=== PATIENT | female | born 1990 | race Caucasian/White ===

== ENCOUNTER 2019-03-27 15:22 | Outpatient (RCR) | payer BC, SELFPAY ==
[2019-03-28] MEDS: RHO(D) IMMUNE GLOBULIN 300 MCG SYRINGE IM (15:28)
== END 2019-06-25 23:59 | disposition home or self-care (01) ==
LOC: ANHLAB 15:22
PROVIDERS: Visit Provider Obstetrics & Gynecology
DX: O20.0 Threatened abortion (principal); Z29.13 Encounter for prophylactic Rho(D) immune globulin; O36.0990 Maternal care for other rhesus isoimmunization, unspecified trimester, not applicable or unspecified; Z3A.00 Weeks of gestation of pregnancy not specified
CPT/HCPCS: 36415; 36430; 90384; 96372; J2790

== ENCOUNTER 2019-08-16 10:30 | Outpatient (RCR) | payer BC, SELFPAY ==
[2019-08-17] MEDS: RHO(D) IMMUNE GLOBULIN 300 MCG SYRINGE IM (10:59)
== END 2019-11-14 23:59 | disposition home or self-care (01) ==
LOC: ANHLAB 10:30
PROVIDERS: Visit Provider Obstetrics & Gynecology
DX: Z29.13 Encounter for prophylactic Rho(D) immune globulin (principal); O36.0990 Maternal care for other rhesus isoimmunization, unspecified trimester, not applicable or unspecified; Z3A.00 Weeks of gestation of pregnancy not specified
CPT/HCPCS: 36415; 86900; 86901; 90384; 96372; J2790

== ENCOUNTER 2019-10-10 11:02 | Outpatient (RCR) | payer BC, SELFPAY ==
[2019-08-30 15:36] VITALS: BP 118/77; PULSE 95
[2019-09-06 10:11] VITALS: BP 123/70; PULSE 88
[2019-09-11 14:52] VITALS: BP 124/82; PULSE 111
[2019-09-19 13:51] VITALS: BP 121/70; PULSE 89
[2019-09-26 16:44] VITALS: BP 112/73; PULSE 92
[2019-10-03 15:01] VITALS: BP 121/68; PULSE 91
[2019-10-10 12:07] VITALS: BP 131/81; PULSE 89
== END 2019-10-17 08:15 | disposition home or self-care (01) ==
LOC: ANHOBOP 11:02
PROVIDERS: Visit Provider Obstetrics & Gynecology
DX: O09.293 Supervision of pregnancy with other poor reproductive or obstetric history, third trimester (principal); Z3A.32 32 weeks gestation of pregnancy; Z3A.33 33 weeks gestation of pregnancy; Z3A.34 34 weeks gestation of pregnancy; Z3A.37 37 weeks gestation of pregnancy; Z3A.38 38 weeks gestation of pregnancy; O26.893 Other specified pregnancy related conditions, third trimester; R03.0 Elevated blood-pressure reading, without diagnosis of hypertension; Z3A.35 35 weeks gestation of pregnancy; Z3A.36 36 weeks gestation of pregnancy
CPT/HCPCS: 59025

== ENCOUNTER 2019-10-16 10:00 | Inpatient (IN) | payer BC, SELFPAY ==
[2019-10-16] VITALS (54 sets, daily range): BP systolic 110–148; BP diastolic 63–90; PULSE 87–180; RESP 18; TEMP 36.5–36.9; O2SAT 96–100; BMI 31.1
[2019-10-16 10:32] LABS: Basophils Percent Auto 0.1 % (0.2-1.2); Eosinophils Absolute Auto 0.1 K/mm3 (0-0.3); Eosinophils Percent Auto 0.5 % (0-4.4); Hematocrit 35.7 % (37.0-47.0); Hemoglobin 12.1 g/dL (12.0-15.0); Immature Granulocyte Absolute 0.09 K/mm3 (0.00-0.031); Immature Granulocyte Percent A 0.8 % (0-0.5); Lymphocytes Absolute Auto 1.64 K/mm3 (0.9-3.2); Lymphocytes Percent Auto 14.5 % (18.3-44.2); Mean Corpuscular HGB Conc 33.9 g/dl (32-36); Mean Corpuscular Hemoglobin 32.3 pg (26-34); Mean Corpuscular Volume 95.2 fl (80-100); Mean Platelet Volume 12.4 fl (7.4-10.4); Monocytes Absolute Auto 0.6 K/mm3 (0.1-0.6); Monocytes Percent Auto 5.6 % (2.6-8.5); Neutrophils Absolute Auto 8.9 K/mm3 (1.3-6.7); Neutrophils Percent Auto 78.5 % (45.5-73.1); Platelet Count Result 191 k/mm3 (150-375); Red Blood Count 3.75 M/mm3 (4.2-5.4); Red Cell Distribution Width 12.4 % (11.5-14.5); White Blood Count 11.3 K/mm3 (4.5-10.0)
--- NOTE | 2019-10-16 11:01 | LDADM ---
This patient, Anali Vela, was admitted to Labor/Delivery/Recovery 106 on 10/16/19 at 10:00. Plans for labor, pain management and were discussed with patient. Patient/family oriented to hospital policies and general routines including ID bracelet, bed and alarms, visiting hours, pain management, procedures, bathroom and other care routines, personal items, smoking policy, room service/diet and guest tray routines, security routines, and visiting hours. Patient/Family are encouraged to report perceived risks to care and to ask questions if they do not understand what they are told or what they should do. See OBIX for further documentation.
[2019-10-16 11:35] LABS: Rapid Plasma Reagin Non-Reactive (NonReactive)
--- NOTE | 2019-10-16 11:57 | WPDOBADMIT ---
Obstetrics - Admit Note Admission Note: record reviewed. Additions to the history and/or subsequent changes in the physical findings follow. 29 y/o at 39 1/7 weeks here with contractions. History of rapid labor. AVSS NST reactive TOCO: contractions irregularly ABD soft, nontender, gravid, vertex EXT nontender Cervix 4/80/-2. AROM with clear fluid. Vertex. A: IUP at term with labor. P: Anticipate .
[2019-10-16] MEDS: LACTATED RINGERS 1,000 ML 125 ML IV CONT ×2 (14:16→14:51)
--- NOTE | 2019-10-16 15:36 | P.PNAN_ITS ---
Anes - Eval Pre Procedure Procedure: labor epidural Date/Time: 10/16/19 15:36 Surgeon: suresh Preop Diagnosis: pain during labor Pre Op Diagnosis: Contractions Patient Data Age: 29 Gender: F Height: 1.75 m Weight: 95.5 kg Last Vital Signs Temp 36.7 C 10/16/19 14:00 Pulse 119 H 10/16/19 15:32 BP 118/71 10/16/19 15:32 Pulse Ox 96 10/16/19 15:34 Allergies Allergy/AdvReac Type Severity Reaction Status Date / Time No Known Allergies Allergy Verified 09/19/19 12:47 Home Medications Medication Instructions Recorded Confirmed Type PNV cmb#95-ferrous fumarate-FA 1 tablet PO DAILY 09/06/19 10/16/19 History [] aspirin [Aspirin Childrens] 81 mg PO DAILY 09/06/19 10/16/19 History Laboratory Tests 10/16/19 10/16/19 10/16/19 10:23 10:23 10:23 WBC 11.3 K/mm3 H K/mm3 (4.5-10.0) RBC 3.75 M/mm3 L M/mm3 (4.2-5.4) Hgb 12.1 g/dL g/dL (12.0-15.0) Hct 35.7 % L % (37.0-47.0) MCV 95.2 fl fl (80-100) MCH 32.3 pg pg (26-34) MCHC 33.9 g/dl g/dl (32-36) RDW 12.4 % % (11.5-14.5) Plt Count 191 k/mm3 k/mm3 (150-375) MPV 12.4 fl H fl (7.4-10.4) Immature Gran % (Auto) 0.8 % H % (0-0.5) Neut % (Auto) 78.5 % H % (45.5-73.1) Lymph % (Auto) 14.5 % L % (18.3-44.2) [place] % (Auto) 5.6 % % (2.6-8.5) Eos % (Auto) 0.5 % % (0-4.4) Baso % (Auto) 0.1 % L % (0.2-1.2) Lymph # (Auto) 1.64 K/mm3 K/mm3 (0.9-3.2) [place] # (Auto) 0.6 K/mm3 K/mm3 (0.1-0.6) Eos # (Auto) 0.1 K/mm3 K/mm3 (0-0.3) Baso # (Auto) 0.0 K/mm3 K/mm3 (0.0-0.1) Abs Immat Gran (auto) 0.09 K/mm3 H K/mm3 (0.00-0.031) Absolute Neuts (auto) 8.9 K/mm3 H K/mm3 (1.3-6.7) Absolute Nucleated RBC 0.0 K/mm3 K/mm3 (0.0-0.012) Nucleated RBC % 0.0 % % (0.0-0.2) RPR Non-reactive (NonReactive) Blood Type O Negative Antibody Screen Negative Patient hx anesthesia problems: none Family hx anesthesia problems: none [facility] Family History Family History (Updated 09/19/19 @ 12:51 by Miesha Grigsby RN) Sibling Hypertension Grandparent Acute myocardial infarction Mother Atrial fibrillation Hypothyroidism S/P ablation of atrial fibrillation Social History Social History (System 06/15/19 @ 13:56 by Sepideh Tao) Smoking status: Never smoker Alcohol intake: current Substance use: never Gender identity (if verbalized by the patient): Female Spiritual care concerns: No Exam Day of Procedure 10/16/19 15:36
[2019-10-16] MEDS: OXYTOCIN 30 UNITS/NS 500 ML 30 UNITS/500 ML BAG 125 UNITS IV CONT (17:08)
--- NOTE | 2019-10-16 18:59 | P.PCNOB_ITS ---
OB - Delivery Note Procedure Delivery date: 10/16/19 Procedure: Induction method: none Delivery augmentation: rupture of membranes Delivery monitor: external FHT, external uterine and internal uterine Route of delivery: Laceration description: Perineal - 2nd Degree Delivery repair: vicryl (3-0) Specimen: Yes (cord blood) Estimated blood loss (mL): 245 Anesthesia type: Epidural Disposition: PACU Complications: None Narrative: 29 y/o at 39 1/7 weeks gestation who presented to the hospital with complaint of contractions. Labor was diagnosed. Amniotomy was performed with return of clear fluid. She received an epidural for pain control. Her labor progressed and her cervix dilated completely. She pushed with good effort and delivered the 's head to the perineum, followed by the body. The nose and mouth were bulb suctioned. After a delay, the cord was clamped and cut. The was handed off the field. Cord blood was collected. The placenta delivered spontaneously and was grossly normal in appearance. The usual 3 vessel cord was noted. A second degree midline perineal laceration was sustained. This was reapproximated using 3 0 Vicryl in the usual layered fashion. Excellent hemostasis resulted as did excellent reapproximation of the normal anatomy. Needle and instrument counts were correct. The patient was taken to recovery room in stable condition. The infant went to the nursery in stable condition. I was present and scrubbed for the entire delivery. [place] [facility] Date of : 10/16/19 Time of : 16:31 Weeks of gestation at delivery: 39 gender: Male Weight (pounds): 8 Weight (ounces): 5 presentation: vertex position: Left Occiput Anterior Placenta delivery description: Spontaneous and Normal Configuration cord vessel description: 3 Vessels and Nuchal Cord score one minute: 9 score five minutes: 9
--- NOTE | 2019-10-16 19:02 | PM.OBDSVD ---
DS: Admitting Diagnosis Admitting Diagnosis Admitting Diagnosis: Labor at term DS: Discharge Diagnosis Discharge Diagnosis (1) (normal spontaneous vaginal delivery): Code(s): O80 - Encounter for full-term uncomplicated delivery Status: Acute OB - DS: Summary OB Procedures : None OB Procedures Intrapartum: Spontaneous Vag Delivery OB Procedures: : None Time Spent with Patient Time attestation: Total time spent providing and/or coordinating discharge services: DS: Data Data Completed and Pending Labs on day of discharge: Labs from last 24 hours 10/16/19 10/16/19 10/16/19 10:23 10:23 10:23 WBC 11.3 H RBC 3.75 L Hgb 12.1 Hct 35.7 L MCV 95.2 MCH 32.3 MCHC 33.9 RDW 12.4 Plt Count 191 MPV 12.4 H Immature Gran % (Auto) 0.8 H Neut % (Auto) 78.5 H Lymph % (Auto) 14.5 L [place] % (Auto) 5.6 Eos % (Auto) 0.5 Baso % (Auto) 0.1 L Lymph # (Auto) 1.64 [place] # (Auto) 0.6 Eos # (Auto) 0.1 Baso # (Auto) 0.0 Abs Immat Gran (auto) 0.09 H Absolute Neuts (auto) 8.9 H Absolute Nucleated RBC 0.0 Nucleated RBC % 0.0 RPR Non-reactive Blood Type O Negative Antibody Screen Negative Discharge Plan Discharge Attending physician on discharge: Eriberto Bardales Consulting providers: Olayinka Mascorro ; Discharging Clinician: Eriberto Bardales Patient Disposition: Home, Self-Care Activity: pelvic rest Diet: regular Discharge Instructions: Call or return if temperature above 100.4? F, increased abdominal pain, increased vaginal bleeding or any new problems. Stand Alone Forms: General Discharge Information Follow-up/Referrals: Eriberto Bardales MD [Physician] - (6 weeks) Discharge Medications: New ibuprofen 600 mg tablet 600 mg PO Q6H PRN (Reason: cramps) Qty: 30 RF: 0 No Action aspirin [Aspirin Childrens] 81 mg Tablet,Chewable 81 mg PO DAILY RF: 0 PNV cmb#95-ferrous fumarate-FA [] 28 mg iron- 800 mcg Tablet 1 tablet PO DAILY RF: 0 Date of admission: 10/16/19 10:00 Primary Care Provider: PHYSICIAN,RADIOLOGY PRACTITIONER ASSISTANT Admitting Provider: Eriberto Bardales Attending physician on admission: Eriberto Bardales
[2019-10-16] MEDS: BENZOCAINE 20% AER SPR (*SP) 56 GM CAN 1 SPRAY TOPICAL (19:24)
[2019-10-16] MEDS: WITCH HAZEL 40 PADS 1 PAD TOPICAL (19:24)
[2019-10-16] MEDS: LANOLIN (LANSINOH) 7.5 GM CREAM 1 APPLIC TOPICAL (19:25)
[2019-10-17] MEDS: IBUPROFEN 600 MG TABLET PO ×2 (03:55→10:12)
[2019-10-17 05:49] LABS: Hematocrit 30.9 % (37.0-47.0); Hemoglobin 10.3 g/dL (12.0-15.0)
--- NOTE | 2019-10-17 07:48 | WPDANLDPN2 ---
Anes-Prog Note L&D Date/Time: 10/17/19 07:48 Comfortable throughout: labor and delivery Neuraxial method: epidural Epidural/Spinal procedure site: clean & non-tender Neuro status: Neuro function grossly intact. Cardiovascular status: normal Respiratory status: normal Airway patency: baseline Mental status: baseline Post-Op hydration status: normal Vital Signs: Last Vital Signs Temp 36.7 C 10/16/19 19:42 Pulse 102 H 10/16/19 19:42 Resp 18 10/16/19 19:42 BP 120/70 10/16/19 19:42 Pulse Ox 100 10/16/19 16:27 I/O: Intake & Output 10/16/19 10/16/19 10/17/19 15:59 23:59 07:59 Intake Total 1000 Output Total 150 Balance 1000 -150 Post-procedural complaints: none Patient feedback: Patient satisfied with anesthetic care.
[2019-10-17 08:00] VITALS: BP 127/74; PULSE 90; RESP 18; TEMP 36.6; O2SAT 98
--- NOTE | 2019-10-17 08:52 | P.PNOB_ITS ---
OB - PN: Subj Subjective Date/time seen: 10/17/19 08:52 Narrative: Pain OK. Would like circumcision for son. Wants to go home today. OB - PN: Obj Data Labs CBC & Chem 7: 10/17/19 04:05 Labs: Laboratory Results - last 24 hr 10/16/19 10/16/19 10/16/19 10:23 10:23 10:23 WBC 11.3 H RBC 3.75 L Hgb 12.1 Hct 35.7 L MCV 95.2 MCH 32.3 MCHC 33.9 RDW 12.4 Plt Count 191 MPV 12.4 H Immature Gran % (Auto) 0.8 H Neut % (Auto) 78.5 H Lymph % (Auto) 14.5 L [place] % (Auto) 5.6 Eos % (Auto) 0.5 Baso % (Auto) 0.1 L Lymph # (Auto) 1.64 [place] # (Auto) 0.6 Eos # (Auto) 0.1 Baso # (Auto) 0.0 Abs Immat Gran (auto) 0.09 H Absolute Neuts (auto) 8.9 H Absolute Nucleated RBC 0.0 Nucleated RBC % 0.0 RPR Non-reactive Blood Type O Negative Antibody Screen Negative 10/17/19 04:05 WBC RBC Hgb 10.3 L Hct 30.9 L MCV MCH MCHC RDW Plt Count MPV Immature Gran % (Auto) Neut % (Auto) Lymph % (Auto) [place] % (Auto) Eos % (Auto) Baso % (Auto) Lymph # (Auto) [place] # (Auto) Eos # (Auto) Baso # (Auto) Abs Immat Gran (auto) Absolute Neuts (auto) Absolute Nucleated RBC Nucleated RBC % RPR Blood Type Antibody Screen OB - PN A/P Plan Comments: A: PPD#1, doing well. P: Routine care. Reviewed circ. Home to f/u 6 weeks. Exam Psych: Other: AVSS ABD soft, nontender, fundus firm EXT nontender
--- NOTE | 2019-10-17 09:55 | PC.NURSE ---
Consulted with patient, mother reports she has been told has a tight tongue frenulum. Tongue is slightly tight, can thrust tongue past gum ridge, both side curl up on extension. Discussed how the tongue impact and the possible effects of a tight frenulum. Mother states will eagerly latch with slight tenderness. Reviewed infant feeding cues, frequencies, duration of feedings, feeding elimination flow sheet, and signs of adequate intake. Demonstrated stimulation techniques to wake for feeding. Assisted with to breast. Reviewed positioning/alignment in cross cradle, holding breast in U hold and guided asymmetrical latch on. Infant was able to latch correctly. Infant nursed eagerly, with steady draws and frequent swallowing noted. Reviewed signs of a correct latch, effective nursing and suck swallow ratio. Infant would slip down to shallow latch while feeding, mother would report tenderness. Demonstrated how to adjust latch more deeply while feeding. Mother was able to correct latch and infant was able to maintain latch without discomfort to mother. Nipple care reviewed. Parents discussed to have a frenulectomy or wait. Advised frenulum may stretch and resolve within a week or may have difficulties emptying breast and mother have tenderness and then move with frenulectomy after 1 week if issues continue. Reviewed both scenarios, parents would like to proceed with process. Primary RN notified of parents wishes. Mother wishes for discharge today. Mother is feeding as required and waking to feed if needed. Infant has had several effective feedings in the past 24 hours, and is currently meeting outcomes for weight, output, jaundice and feeding frequencies. Mother states she feels confident to continue effective at home. Reviewed transition to breast milk, signs of adequate intake, and engorgement/relief. Instructed to call ICP if intake/output less than required. Reviewed regular medications mother is taking. Information provided per Dorothea. Reviewed community resources on the [facility] website and in the Mom/Baby guide. Information on outpatient services provided. Mother has no further questions at this time.
[2019-10-17] MEDS: MULTIVIT/MIN/PREN/FOL AC/IRON TABLET 1 TAB PO (10:12)
[2019-10-17] MEDS: RHO(D) IMMUNE GLOBULIN 300 MCG SYRINGE IM (13:30)
[2019-10-19 10:21] VITALS: BP 118/79; PULSE 99; RESP 20
== END 2019-10-17 18:25 | disposition home or self-care (01) | DRG 807 ==
LOC: ANHLDR 19:09 → ANHOB2 19:42
PROVIDERS: Admitting Provider Obstetrics & Gynecology; Visit Provider Obstetrics & Gynecology
DX: O10.92 Unspecified pre-existing hypertension complicating childbirth (principal); Z37.0 Single live birth; Z3A.39 39 weeks gestation of pregnancy; O69.81X0 Labor and delivery complicated by cord around neck, without compression, not applicable or unspecified; O70.1 Second degree perineal laceration during delivery
CPT/HCPCS: 36415; 85014; 85018; 85025; 85461; 86592; 86850; 86900; 86901; 90384; A9270; J2590; J2790; J2795; J7120

== ENCOUNTER 2021-08-22 13:31 | Outpatient (RCR) | payer BC, SELFPAY ==
[2021-08-22] MEDS: RHO(D) IMMUNE GLOBULIN 300 MCG/2 ML SYRINGE IM (11:36)
== END 2021-08-22 14:00 | disposition home or self-care (01) ==
LOC: ANHLAB 13:31
PROVIDERS: Visit Provider Obstetrics & Gynecology
DX: Z29.13 Encounter for prophylactic Rho(D) immune globulin (principal); O36.0190 Maternal care for anti-D [Rh] antibodies, unspecified trimester, not applicable or unspecified; Z3A.00 Weeks of gestation of pregnancy not specified
CPT/HCPCS: 36415; 85461; 90384; 96372; J2790

== ENCOUNTER 2021-10-19 05:07 | Outpatient (CLI) | payer BC, SELFPAY ==
[2021-10-19 05:36] VITALS: BP 124/77; PULSE 85
--- NOTE | 2021-10-19 05:40 | PC.NURSE ---
Updated Dr. Bardales of negative ROM plus results. VSS. FHT reactive. Irregular contractions via TOCO monitor, contractions palpate mild and patient denies feeling contractions. Patient ok to go home; patient instructed to follow-up with regular scheduled appointment.
[2021-10-19 05:49] VITALS: BP 124/77; PULSE 80
== END 2021-10-19 05:48 | disposition home or self-care (01) ==
PROVIDERS: Visit Provider Obstetrics & Gynecology
DX: O42.92 Full-term premature rupture of membranes, unspecified as to length of time between rupture and onset of labor (principal); Z3A.37 37 weeks gestation of pregnancy
CPT/HCPCS: 59025; 84112

== ENCOUNTER 2021-10-30 14:21 | Outpatient (RCR) | payer BC, SELFPAY ==
[2021-09-11 15:42] VITALS: BP 113/72; PULSE 86
[2021-09-18 14:48] VITALS: BP 121/75; PULSE 96
[2021-09-25 16:06] VITALS: BP 117/73; PULSE 84
[2021-10-02 13:59] VITALS: BP 113/70; PULSE 83
[2021-10-09 15:48] VITALS: BP 119/70; PULSE 86
[2021-10-16 14:55] VITALS: BP 122/73; PULSE 79
[2021-10-23 14:38] VITALS: BP 124/72; PULSE 84
[2021-10-30 15:27] VITALS: BP 113/77; PULSE 84
== END 2021-11-15 09:33 | disposition home or self-care (01) ==
LOC: ANHOBOP 14:21
PROVIDERS: Visit Provider Obstetrics & Gynecology
DX: O16.3 Unspecified maternal hypertension, third trimester (principal); Z3A.32 32 weeks gestation of pregnancy; Z3A.33 33 weeks gestation of pregnancy; Z3A.34 34 weeks gestation of pregnancy; Z3A.35 35 weeks gestation of pregnancy; Z3A.36 36 weeks gestation of pregnancy; Z3A.37 37 weeks gestation of pregnancy
CPT/HCPCS: 59025

== ENCOUNTER 2021-11-04 02:51 | Inpatient (IN) | payer BC, SELFPAY ==
[2021-11-04] VITALS (101 sets, daily range): BP systolic 105–149; BP diastolic 56–92; PULSE 55–112; RESP 16–18; TEMP 36.3–36.8; O2SAT 97–100; BMI 29.6
--- NOTE | 2021-11-04 02:51 | LDADM ---
This patient, Anali Vela, was admitted to Labor/Delivery/Recovery 106 on 11/04/21 at 02:51. Plans for labor, pain management and were discussed with patient. Patient/family oriented to hospital policies and general routines including ID bracelet, bed and alarms, visiting hours, pain management, procedures, bathroom and other care routines, personal items, smoking policy, room service/diet and guest tray routines, security routines, and visiting hours. Patient/Family are encouraged to report perceived risks to care and to ask questions if they do not understand what they are told or what they should do. See OBIX for further documentation.
[2021-11-04 03:40] LABS: Basophils Percent Auto 0.4 % (0.2-1.2); Eosinophils Percent Auto 0.4 % (0-4.4); Hematocrit 33.4 % (37.0-47.0); Immature Granulocyte Absolute 0.06 K/mm3 (0.00-0.031); Immature Granulocyte Percent A 0.6 % (0-0.5); Lymphocytes Absolute Auto 1.87 K/mm3 (0.9-3.2); Lymphocytes Percent Auto 19.3 % (18.3-44.2); Mean Corpuscular HGB Conc 32.9 g/dl (32-36); Mean Corpuscular Hemoglobin 29.6 pg (26-34); Mean Corpuscular Volume 89.8 fl (80-100); Mean Platelet Volume 11.6 fl (7.4-10.4); Monocytes Absolute Auto 0.5 K/mm3 (0.1-0.6); Monocytes Percent Auto 5.5 % (2.6-8.5); Neutrophils Absolute Auto 7.2 K/mm3 (1.3-6.7); Neutrophils Percent Auto 73.8 % (45.5-73.1); Platelet Count Result 200 k/mm3 (150-375); Red Blood Count 3.72 M/mm3 (4.2-5.4); White Blood Count 9.7 K/mm3 (4.5-10.0)
[2021-11-04 03:51] LABS: Alanine Aminotransferase 12 U/L (6-35); Albumin Level 3.7 g/dL (3.5-5.1); Alkaline Phosphatase 120 U/L (38-126); Anion Gap 6 mmol/L (8-16); Aspartate Amino Transferase 17 U/L (14-36); Bilirubin,Total 0.2 mg/dL (0.2-1.3); Blood Urea Nitrogen 15 mg/dL (7-17); Calcium 9.1 mg/dL (8.4-10.2); Carbon Dioxide 21 mmol/L (22-30); Chloride 107 mmol/L (98-107); Estimated CRCL calculation 118 ml/min; Estimated Glomerular Filt Rate > 60; Glucose 91 mg/dL (65-110); Potassium 3.6 mmol/L (3.4-5.0); Sodium 134 mmol/L (137-145); Uric Acid 3.6 mg/dL (2.5-7.5)
--- NOTE | 2021-11-04 04:42 | WPDANESEPP ---
Anes - Eval Pre Procedure Procedure: labor epidural Date/Time: 11/04/21 04:42 Surgeon: suresh Pre Op Diagnosis: Contractions Patient Data Age: 31 Gender: F Height: 1.75 m Weight: 91 kg Last Vital Signs Temp 36.3 C L 11/04/21 03:56 Pulse 87 11/04/21 04:36 BP 137/84 11/04/21 04:36 O2 Del Method Room Air 11/04/21 03:44 Allergies Allergy/AdvReac Type Severity Reaction Status Date / Time No Known Allergies Allergy Verified 09/19/19 12:47 Home Medications Medication Instructions Recorded Confirmed Type vit no.95-ferrous 1 tablet PO DAILY 09/06/19 11/04/21 History fumarate 28 mg-folic acid 800 mcg tablet () aspirin 81 mg tablet 81 mg PO DAILY 10/02/21 11/04/21 History Laboratory Tests 11/04/21 11/04/21 11/04/21 03:31 03:31 03:31 WBC 9.7 K/mm3 K/mm3 (4.5-10.0) RBC 3.72 M/mm3 L M/mm3 (4.2-5.4) Hgb 11.0 g/dL L g/dL (12.0-15.0) Hct 33.4 % L % (37.0-47.0) MCV 89.8 fl fl (80-100) MCH 29.6 pg pg (26-34) MCHC 32.9 g/dl g/dl (32-36) RDW 12.0 % % (11.5-14.5) Plt Count 200 k/mm3 k/mm3 (150-375) MPV 11.6 fl H fl (7.4-10.4) Immature Gran % (Auto) 0.6 % H % (0-0.5) Neut % (Auto) 73.8 % H % (45.5-73.1) Lymph % (Auto) 19.3 % % (18.3-44.2) [place] % (Auto) 5.5 % % (2.6-8.5) Eos % (Auto) 0.4 % % (0-4.4) Baso % (Auto) 0.4 % % (0.2-1.2) Lymph # (Auto) 1.87 K/mm3 K/mm3 (0.9-3.2) [place] # (Auto) 0.5 K/mm3 K/mm3 (0.1-0.6) Eos # (Auto) 0.0 K/mm3 K/mm3 (0-0.3) Baso # (Auto) 0.0 K/mm3 K/mm3 (0.0-0.1) Abs Immat Gran (auto) 0.06 K/mm3 H K/mm3 (0.00-0.031) Absolute Neuts (auto) 7.2 K/mm3 H K/mm3 (1.3-6.7) Absolute Nucleated RBC 0.0 K/mm3 K/mm3 (0.0-0.012) Nucleated RBC % 0.0 % % (0.0-0.2) Sodium Potassium Chloride Carbon Dioxide Anion Gap BUN Creatinine Estim Creat Clear Calc Estimated GFR Glucose Uric Acid Calcium Total Bilirubin AST ALT Alkaline Phosphatase Total Protein Albumin RPR Pending Blood Type O Negative Antibody Screen Pending 11/04/21 03:34 WBC RBC Hgb Hct MCV MCH MCHC RDW Plt Count MPV Immature Gran % (Auto) Neut % (Auto) Lymph % (Auto) [place] % (Auto) Eos % (Auto) Baso % (Auto) Lymph # (Auto) [place] # (Auto) Eos # (Auto) Baso # (Auto) Abs Immat Gran (auto) Absolute Neuts (auto) Absolute Nucleated RBC Nucleated RBC % Sodium 134 mmol/L L mmol/L (137-145) Potassium 3.6 mmol/L mmol/L (3.4-5.0) Chloride 107 mmol/L mmol/L (98-107) Carbon Dioxide 21 mmol/L L mmol/L (22-30) Anion Gap 6 mmol/L L mmol/L (8-16) BUN 15 mg/dL mg/dL (7-17) Creatinine 0.70 mg/dL mg/dL (0.7-1.0) Estim Creat Clear Calc 118 ml/min ml/min Estimated GFR > 60 (59 - ) Glucose 91 mg/dL mg/dL (65-110) Uric Acid 3.6 mg/dL mg/dL (2.5-7.5) Calcium 9.1 mg/dL mg/dL (8.4-10.2) Total Bilirubin 0.2 mg/dL mg/dL (0.2-1.3) AST 17 U/L U/L (14-36) ALT 12 U/L U/L (6-35) Alkaline Phosphatase 120 U/L U/L (38-126) Total Protein 7.0 g/dL g/dL (6.3-8.2) Albumin 3.7 g/dL g/dL (3.5-5.1) RPR Blood Type Antibody Screen Patient hx anesthesia problems: none Family hx anesthesia problems: none Results Review: All pre-operative results and documents have been reviewed as part of the pre-operative evaluation. [facility] [place]
[2021-11-04] MEDS: LACTATED RINGERS 1,000 ML 125 ML IV CONT ×3 (07:43→12:07)
[2021-11-04 08:23] LABS: Rapid Plasma Reagin Non-Reactive (NonReactive)
--- NOTE | 2021-11-04 08:40 | WPDOBADMIT ---
Obstetrics - Admit Note Admission Note: record reviewed. Additions to the history and/or subsequent changes in the physical findings follow. 31 y/o at 39 5/7 weeks here with contractions. GBS neg. AVSS NST reactive TOCO: contractions irregularly ABD soft, nontender, gravid, vertex EXT nontender Cervix 5/80/-1. AROM with clear fluid. Vertex. A: IUP at term with labor. P: Augment labor as needed. Anticipate .
[2021-11-04] MEDS: OXYTOCIN 30 UNITS/NS 500 ML 30 UNITS/500 ML BAG IV CONT (10:40)
--- NOTE | 2021-11-04 12:40 | PM.OBPNLAB ---
Pain Control Date/time seen: 11/04/21 12:40 Comfortable with epidural. AVSS NST reactive TOCO: contractions every 2-4 min Cervix 8/100/0 Continue labor.
--- NOTE | 2021-11-04 13:30 | PM.OBPRVD ---
OB - Delivery Note Procedure Delivery date: 11/04/21 Procedure: Induction method: None Delivery augmentation: Rupture of Membranes and Pitocin Delivery monitor: External FHT and External Uterine Route of delivery: Laceration Description: Perineal - 2nd Degree Delivery repair: vicryl (3-0) Specimen: Yes (cord blood) Quantitative Blood Loss (ml): 420 Anesthesia type: Epidural Disposition: PACU Complications: None Narrative: 31 y/o at 39 5/7 weeks gestation who presented to the hospital with contractions. Labor was diagnosed. She received an epidural for pain control. Amniotomy was performed with return of clear fluid. She received oxytocin for labor augmentation. Her labor progressed and her cervix dilated completely. She pushed with good effort and delivered the infant's head to the perineum. A loose nuchal cord was reduced and the body delivered. The nose and mouth were bulb suctioned. After a delay, the cord was clamped and cut. The was handed off the field. Cord blood was collected. The placenta delivered spontaneously and was grossly normal in appearance. The usual 3 vessel cord was noted. A second degree midline perineal laceration was sustained. This was reapproximated using 3 0 Vicryl in the usual layered fashion. Excellent hemostasis resulted as did excellent reapproximation of the normal anatomy. Needle and instrument counts were correct. The patient was taken to recovery room in stable condition. The infant went to the nursery in stable condition. I was present and scrubbed for the entire delivery. [place] [facility] Date of : 11/04/21 Time of : 13:05 Weeks of gestation at delivery: 39 gender: Male Weight (pounds): 8 Weight (ounces): 5 presentation: vertex position: Right Occiput Anterior Placenta delivery description: Spontaneous and Normal Configuration Cord Vessel Description: 3 Vessels, Nuchal Cord and Delayed Cord Clamping score one minute: 9 score five minutes: 9
--- NOTE | 2021-11-04 13:32 | PM.OBDSVD ---
DS: Admitting Diagnosis Discharge Date 11/05/21 Admitting Diagnosis IUP at 39 5/7 weeks Labor Chronic hypertension DS: Discharge Diagnosis Discharge Diagnosis (1) (normal spontaneous vaginal delivery): Code(s): O80 - Encounter for full-term uncomplicated delivery Status: Acute (2) Chronic hypertension during : Code(s): O10.919 - Unspecified pre-existing hypertension complicating , unspecified trimester Status: Acute OB - DS: Summary OB Procedures : None OB Procedures Intrapartum: Spontaneous Vag Delivery OB Procedures: : None Time Spent with Patient Time attestation: Total time spent providing and/or coordinating discharge services: DS: Data Data Completed and Pending Labs on day of discharge: Labs from last 24 hours 11/04/21 11/04/21 11/04/21 03:34 03:31 03:31 WBC RBC Hgb Hct MCV MCH MCHC RDW Plt Count MPV Immature Gran % (Auto) Neut % (Auto) Lymph % (Auto) [place] % (Auto) Eos % (Auto) Baso % (Auto) Lymph # (Auto) [place] # (Auto) Eos # (Auto) Baso # (Auto) Abs Immat Gran (auto) Absolute Neuts (auto) Absolute Nucleated RBC Nucleated RBC % Sodium 134 L Potassium 3.6 Chloride 107 Carbon Dioxide 21 L Anion Gap 6 L BUN 15 Creatinine 0.70 Estim Creat Clear Calc 118 Estimated GFR > 60 Glucose 91 Uric Acid 3.6 Calcium 9.1 Total Bilirubin 0.2 AST 17 ALT 12 Alkaline Phosphatase 120 Total Protein 7.0 Albumin 3.7 RPR Non-reactive Blood Type O Negative Antibody Screen Negative 11/04/21 03:31 WBC 9.7 RBC 3.72 L Hgb 11.0 L Hct 33.4 L MCV 89.8 MCH 29.6 MCHC 32.9 RDW 12.0 Plt Count 200 MPV 11.6 H Immature Gran % (Auto) 0.6 H Neut % (Auto) 73.8 H Lymph % (Auto) 19.3 [place] % (Auto) 5.5 Eos % (Auto) 0.4 Baso % (Auto) 0.4 Lymph # (Auto) 1.87 [place] # (Auto) 0.5 Eos # (Auto) 0.0 Baso # (Auto) 0.0 Abs Immat Gran (auto) 0.06 H Absolute Neuts (auto) 7.2 H Absolute Nucleated RBC 0.0 Nucleated RBC % 0.0 Sodium Potassium Chloride Carbon Dioxide Anion Gap BUN Creatinine Estim Creat Clear Calc Estimated GFR Glucose Uric Acid Calcium Total Bilirubin AST ALT Alkaline Phosphatase Total Protein Albumin RPR Blood Type Antibody Screen Discharge Plan Discharge Attending physician on discharge: Eriberto Bardales Discharging Clinician: Eriberto Bardales Patient Disposition: Home, Self-Care Activity: pelvic rest Diet: regular Discharge Instructions: Call or return if temperature above 100.4? F, increased abdominal pain, increased vaginal bleeding or any new problems. Stand Alone Forms: General Discharge Information Follow-up/Referrals: Eriberto Bardales MD [Physician] - 6 Weeks Discharge Medications: New ibuprofen 600 mg tablet 600 mg PO Q6H PRN (Reason: cramps) Qty: 30 0RF ferrous sulfate 325 mg (65 mg iron) tablet 325 mg PO DAILY Qty: 30 0RF Continued PNV cmb#95-ferrous fumarate-FA [] 28 mg iron- 800 mcg Tablet 1 tablet PO DAILY Discontinued aspirin 81 mg Tablet 81 mg PO DAILY Date of admission: 11/04/21 02:51 Primary Care Provider: PHYSICIAN,NEUROLOGICAL SURGERY TEACHER Admitting Provider: Eriberto Bardales Attending physician on admission: Eriberto Bardales Condition: Stable
[2021-11-04] MEDS: OXYTOCIN 30 UNITS/NS 500 ML 30 UNITS/500 ML BAG 125 UNITS IV CONT (13:40)
--- NOTE | 2021-11-04 15:57 | PC.NURSE ---
Patient transferred to post room #290 via wheelchair. Support person present. Oriented to unit, room, information board, rooming in, admission packet and security measures. Patient verbalizes understanding.
--- NOTE | 2021-11-04 16:21 | PC.NURSE ---
Addendum entered by Sun Bartlett RN 11/04/21 16:22: Pt to floor at 1557 on 11/04/21. Original Note: Patient transferred to post room #291 per wheelchair from labor and delivery. Support person present. Oriented to unit, room, information board, rooming in, admission packet and security measures. Patient verbalizes understanding.
[2021-11-04] MEDS: IBUPROFEN 600 MG TABLET PO (18:37)
[2021-11-05] VITALS: BP 112/44; PULSE 79; RESP 18; TEMP 36.3; O2SAT 100
[2021-11-05] MEDS: IBUPROFEN 600 MG TABLET PO ×3 (02:10→15:05)
[2021-11-05 04:00] VITALS: BP 129/80; PULSE 76; RESP 18; TEMP 36.1; O2SAT 100
[2021-11-05 04:51] LABS: Hemoglobin 8.9 g/dL (12.0-15.0)
[2021-11-05] MEDS: POLYSACCHARIDE IRON COMPLEX 150 MG CAPSULE PO (07:41)
[2021-11-05 09:30] VITALS: BP 124/69; PULSE 83; RESP 16; TEMP 36.6; O2SAT 100
--- NOTE | 2021-11-05 09:51 | WPDANLDPN2 ---
Anes-Prog Note L&D Date/Time: 11/05/21 09:51 Neuro status: Neuro function grossly intact. Vital Signs: Last Vital Signs Temp 36.1 C L 11/05/21 04:00 Pulse 76 11/05/21 04:00 Resp 18 11/05/21 04:00 BP 129/80 11/05/21 04:00 Pulse Ox 100 11/05/21 04:00 O2 Del Method Room Air 11/05/21 08:00 Pain score (VAS): 0 I/O: Intake & Output 11/04/21 11/05/21 11/05/21 23:59 07:59 15:59 Intake Total 200 Balance 200 Patient feedback: Patient satisfied with anesthetic care.
[2021-11-05] MEDS: RHO(D) IMMUNE GLOBULIN 300 MCG/2 ML SYRINGE IM (10:37)
--- NOTE | 2021-11-05 12:35 | PM.OBPNVD ---
OB - PN: Subj Subjective Date/time seen: 11/05/21 12:35 Narrative: Pain OK. Would like circumcision for son. Would like to go home. OB - PN: Obj Data Labs CBC & Chem 7: 11/05/21 04:03 11/04/21 03:34 Labs: Laboratory Results - last 24 hr 11/05/21 11/05/21 04:03 04:03 Hgb 8.9 L Hct 28.0 L Blood Type O Negative Antibody Screen Negative Screen Negative Baby's Blood Type O pos Baby's AURELIA Negative Doses of RhIg Required 1 OB - PN A/P Plan Comments: A: PPD#1, doing well. P: Reviewed circ. Home to f/u 6 weeks. Exam Psych: Other: AVSS ABD soft, nontender, fundus firm EXT nontender
[2021-11-05 12:49] VITALS: BP 122/71; PULSE 84; RESP 16; TEMP 36.4; O2SAT 99
--- NOTE | 2021-11-05 16:08 | PC.NURSE ---
1320 - Mother verbalizes she is able to independently latch with appropriate positioning/alignment. She denies any nipple discomfort and is responsively . Latch observed using cross cradle to the right breast with rocking motion and good suck/ swallow ratios. Reviewed encouraging mother to latch with wide, open gape, deep latch and should not have pain. is currently meeting outcomes for weight, output, jaundice and feeding frequencies of 8-12 times in 24 hours. Mother voiced comfort with independently latch optimally without discomfort. Mother is feeding appropriately for growth of and understands stimulating infant to eat if needed. Infant has had appropriate feedings in the last 24 hours meets the outcomes for weight, output and jaundice at this time. Mother states she is confident to continue effectively her infant at home or when to call for assistance and denies any additional assistance or education at this time. Reinforced understanding of milk production, signs of adequate intake, 2-3 hours after the start of the last feeding, community resources, when to call a provider using the resource of the mom and baby guide. Mother voiced understanding of the education shared.
[2021-11-07 11:05] VITALS: BP 130/74; PULSE 77; RESP 16; TEMP 37.2; O2SAT 99
== END 2021-11-05 15:20 | disposition home or self-care (01) | DRG 807 ==
LOC: ANHLDR 13:33 → ANHOB2 16:02
PROVIDERS: Admitting Provider Student in an Organized Health Care Education/Training Program; Visit Provider Obstetrics & Gynecology
DX: O10.92 Unspecified pre-existing hypertension complicating childbirth (principal); Z37.0 Single live birth; O70.1 Second degree perineal laceration during delivery; O69.81X0 Labor and delivery complicated by cord around neck, without compression, not applicable or unspecified; O76 Abnormality in fetal heart rate and rhythm complicating labor and delivery; Z3A.39 39 weeks gestation of pregnancy
CPT/HCPCS: 36415; 80053; 84550; 85014; 85018; 85025; 85461; 86592; 86850; 86900; 86901; 90384; A9270; J2590; J2790; J2795; J7120